=== PATIENT | male | born 1955 | race Hispanic/Latino ===

== ENCOUNTER 2020-04-18 16:23 | Inpatient (IN) | payer MEDICARE ==
--- NOTE | 2020-04-18 16:46 | Emergency Department Report ---
ED Abdominal Pain HPI - General Chief Complaint: Abdominal Pain Stated Complaint: ABD PAIN PUI?: No Time Seen by Provider: 04/18/20 16:43 Source: patient, EMS Mode of arrival: Stretcher Limitations: No Limitations - History of Present Illness Initial Comments: Patient is a 64-year-old male that presents emergency room with complaints of abdominal pain. Patient states a. Patient states the abdominal pain is severe. Patient states it was so bad he had to call EMS to bring him to the hospital. Patient states his worst pain is ever felt. Patient denies nausea vomiting. Patient denies diarrhea. Patient denies chest pain or shortness of breath. Patient denies fever and chills. Patient denies cough. Patient states the abdominal pain is in his upper abdomen. Patient states is in the right upper and epigastric region. Patient states the pain is a 10 out of 10. MD Complaint: abdominal pain -: Sudden Location: RUQ, epigastric Radiation: none Migration to: no migration Severity: severe Severity scale (0 -10): 10 Quality: stabbing Consistency: constant Improves With: rest Worsens With: movement Associated Symptoms: denies: nausea, vomiting, diarrhea, fever, chills, constipation, dysuria, hematemesis, hematochezia, melena, hematuria, syncope - Related Data Allergies Allergy/AdvReac Type Severity Reaction Status Date / Time No Known Allergies Allergy Unverified 04/18/20 19:09 ED Review of Systems ROS: Stated complaint: ABD PAIN Other details as noted in HPI Constitutional: denies: chills, fever Eyes: denies: eye pain, eye discharge, vision change ENT: denies: ear pain, throat pain Respiratory: denies: cough, shortness of breath, wheezing Cardiovascular: denies: chest pain, palpitations Endocrine: no symptoms reported Gastrointestinal: abdominal pain. denies: nausea, diarrhea Genitourinary: denies: urgency, dysuria Musculoskeletal: denies: back pain, joint swelling, arthralgia Skin: denies: rash, lesions Neurological: denies: headache, weakness, paresthesias Psychiatric: denies: anxiety, depression Hematological/Lymphatic: denies: easy bleeding, easy bruising ED Past Medical Hx - Past Medical History Previous Medical History?: Yes Hx Hypertension: Yes - Surgical History Past Surgical History?: No - Family History Family history: no significant - Social History Smoking Status: Never Smoker Substance Use Type: None ED Physical Exam - General Limitations: No Limitations General appearance: alert, in no apparent distress - Head Head exam: Present: atraumatic, normocephalic - Eye Eye exam: Present: normal appearance, PERRL - ENT ENT exam: Present: mucous membranes moist - Neck Neck exam: Present: normal inspection - Respiratory Respiratory exam: Present: normal lung sounds bilaterally. Absent: respiratory distress - Cardiovascular Cardiovascular Exam: Present: regular rate, normal rhythm. Absent: systolic murmur, diastolic murmur, rubs, gallop - GI/Abdominal GI/Abdominal exam: Present: soft, tenderness (Right upper and epigastric tenderness to palpation.), normal bowel sounds - Rectal Rectal exam: Present: deferred - Extremities Exam Extremities exam: Present: normal inspection - Back Exam Back exam: Present: normal inspection - Neurological Exam Neurological exam: Present: alert, oriented X3 - Psychiatric Psychiatric exam: Present: normal affect, normal mood - Skin Skin exam: Present: warm, dry, intact, normal color. Absent: rash ED Course Vital Signs 04/18/20 04/18/20 04/18/20 16:56 17:00 17:30 Temperature 98.4 F Pulse Rate 91 H 90 92 H Respiratory 19 20 18 Rate Blood Pressure 152/103 150/104 Blood Pressure 150/101 [Right] O2 Sat by Pulse 98 97 97 Oximetry 04/18/20 04/18/20 04/18/20 17:46 18:00 18:58 Temperature Pulse Rate 94 H 94 H 102 H Respiratory 18 19 26 H Rate Blood Pressure 152/103 150/106 150/104 Blood Pressure [Right] O2 Sat by Pulse 98 96 99 Oximetry 04/18/20 04/18/20 04/18/20 19:00 19:16 19:30 Temperature Pulse Rate 101 H 95 H 106 H Respiratory 16 18 28 H Rate Blood Pressure 168/110 168/110 164/114 Blood Pressure [Right] O2 Sat by Pulse 96 98 97 Oximetry 04/18/20 04/18/20 04/18/20 20:16 20:30 20:46 Temperature Pulse Rate Respiratory Rate Blood Pressure 150/106 158/110 164/114 Blood Pressure [Right] O2 Sat by Pulse 98 96 99 Oximetry 04/18/20 04/18/20 04/18/20 21:00 21:16 21:30 Temperature Pulse Rate Respiratory 19 Rate Blood Pressure 188/108 188/108 172/111 Blood Pressure [Right] O2 Sat by Pulse 100 96 98 Oximetry 04/18/20 04/18/20 04/18/20 21:46 22:00 22:30 Temperature Pulse Rate Respiratory 18 20 34 H Rate Blood Pressure 200/116 169/110 157/109 Blood Pressure [Right] O2 Sat by Pulse 97 98 100 Oximetry - Reevaluation(s) Reevaluation #1: Patient states the pain was better but is now returning. Patient was given a milligram Dilaudid. Patient given fluids and antibiotics. I discussed all results with patient. I discussed plan of care with patient. Patient agrees with plan of care and admission. Patient to be admitted to the hospitalist service. 04/18/20 19:29 - Consultations Consultation #1: General surgery paged. 04/18/20 19:20 I discussed case with Dr. Cruz general surgery. Dr. Cruz recommends admis st[place] and will see the patient in the morning and n.p.o. after midnight and continue ordered medications. 04/18/20 19:34 Consultation #2: Hospitalist consulted for admission. Hospitalist to admit patient. 04/18/20 19:36 ED Medical Decision Making - Lab Data Result diagrams: 04/18/20 16:56 04/18/20 16:56 - Radiology Data Radiology results: report reviewed CT abdomen pelvis w con INDICATION / CLINICAL INFORMATION: Right-sided abdominal pain TECHNIQUE: Routine CT of the abdomen and pelvis with IV contrast All CT scans at this location are performed using CT dose reduction for ALARA by means of automated exposure control. COMPARISON: None available. FINDINGS: Abdomen and pelvis: The liver, spleen, pancreas and adrenal glands are unremarkable. The gallbladder is fluid distended and the gallbladder wall is mildly thickened. There is slight pericholecystic inflammation.. The common bile duct appears dilated measuring about 10 mm in greatest diameter. The adrenal glands and kidneys are grossly unremarkable. No free air or free fluid is identified. No evidence of bowel obstruction. There is extensive colonic diverticulosis but no evidence of diverticulitis. The prostate contains central calcifications and urinary bladder wall appears borderline thickened. No free pelvic fluid or adenopathy is appreciated. Scattered atherosclerotic calcification of a nondilated abdominal aorta. The lower lungs are clear. Mild thoracolumbar type degenerative changes present. IMPRESSION: Abnormal appearance of the gallbladder suspicious for acute cholecystitis. No gallstones appreciated. Ultrasound would be useful for further evaluation. ULTRASOUND ABDOMEN, LIMITED (RIGHT UPPER QUADRANT) INDICATION: abd pain. gallbladder, acute whitney. COMPARISON: CT abdomen/pelvis, 04/18/2020. FINDINGS: Pancreas: Pancreas is grossly obscured by overlying bowel gas but appeared grossly unremarkable on CT scan from earlier today. Liver: Normal. Gallbladder: Abnormal. The gallbladder is distended. There is mild gallbladder wall thickening as well as moderate amount of sludge within the gallbladder lumen. No definite stones. However small stones may be obscured within the gallbladder sludge. Bile ducts: Abnormal Common Bile Duct measures 7 mm. Free fluid: None. Additional Findings: None. IMPRESSION: 1. Abnormal appearance of the gallbladder. There is abnormal gallbladder distention with associated gallbladder wall thickening and moderate amount of sludge present. The appearance is certainly worrisome for acute cholecystitis. 2. Mild dilatation of the common bile duct is also noted. - Medical Decision Making Patient is a 64-year-old male that presents emergency room with complaints of abdominal pain x2 days. Patient's abdominal pain is in the right upper abdomen and epigastric region. Patient had labs done which were unremarkable except for an elevated WBC. Patient had a CT scan with IV contrast and it shows finding consistent with acute cholecystitis. Patient will be given fluids and antibiotics. General surgery consulted. Patient admitted to the hospitalist service. Patient had an ultrasound done to be followed by the hospitalist service. - Differential Diagnosis Abdominal pain, cholecystitis, cholelithiasis, gastritis, gastroenteritis. Critical Care Time: Yes Critical care time in (mins) excluding proc time.: 35 Critical care attestation.: If time is entered above; I have spent that time in minutes in the direct care of this critically ill patient, excluding procedure time. Critical Care Time: 35 minutes ED Disposition Clinical Impression: Acute cholecystitis Abdominal pain Qualifiers: Abdominal location: upper abdomen, unspecified Qualified Code(s): R10.10 - Upper abdominal pain, unspecified Disposition: 09 OP ADMIT IP TO THIS HOSP Is pt being admited?: Yes Does the pt Need Aspirin: No Condition: Critical Time of Disposition: 19:20
[2020-04-18 17:13] LABS: Basophils % (Auto) 0.3 % (0.0-1.8); Eosinophils % (Auto) 0.2 % (0.0-4.3); Hematocrit 48.2 % (35.5-45.6); Hemoglobin 16.2 gm/dl (11.8-15.2); Lymphocytes % (Auto) 7.5 % (13.4-35.0); Mean Corpuscular HGB Conc 34 % (32-34); Mean Corpuscular Volume 92 fl (84-94); Monocytes # (Auto) 0.7 K/mm3 (0.0-0.8); Monocytes % (Auto) 4.9 % (0.0-7.3); Platelet Count 286 K/mm3 (140-440); Red Blood Count 5.24 M/mm3 (3.65-5.03); Red Cell Distribution Width 13.3 % (13.2-15.2)
[2020-04-18 17:29] LABS: Alanine Aminotransferase 15 units/L (7-56); Albumin 4.3 g/dL (3.9-5); BUN/Creatinine Ratio 65; Blood Urea Nitrogen 13 mg/dL (9-20); Hemolysis Index 18
[2020-04-18] MEDS ORDERED: HYDROmorphone 1 MG/1 ML INJ IV ONE ×2 (17:56→19:29)
--- NOTE | 2020-04-18 19:16 | Cat Scan Report ---
CT abdomen pelvis w con INDICATION / CLINICAL INFORMATION: Right-sided abdominal pain TECHNIQUE: Routine CT of the abdomen and pelvis with IV contrast All CT scans at this location are performed usi ng CT dose reduction for ALARA by means of automated exposure control. COMPARISON: None available. FINDINGS: Abdomen and pelvis: The liver, spleen, pancreas and adrenal glands are unremarkable. The gallbladder is fluid distended a nd the gallbladder wall is mildly thickened. There is slight pericholecystic inflammation.. The commo n bile duct appears dilated measuring about 10 mm in greatest diameter. The adrenal glands and kidneys are grossly unremarkable. No free air or free fluid is identified. No evidence of bowel obstruction. There is extensive colonic diverticulosis but no evidence of diverticulitis. The prostate contains central calcifications and urinary bladder wall appears borderline thickened. N o free pelvic fluid or adenopathy is appreciated. Scattered atherosclerotic calcification of a nondil ated abdominal aorta. The lower lungs are clear. Mild thoracolumbar type degenerative changes present. IMPRESSION: Abnormal appearance of the gallbladder suspicious for acute cholecystitis. No gallstones appreciated. Ultrasound would be useful for further evaluation. Signer Name: Allan Simon MD Signed: 04/18/2020 7:12 PM Workstation Name: [id number]
[2020-04-18] MEDS ORDERED: SODIUM CHLORIDE 0.9% 1000 ML 1,000 ML IV ONE (19:24)
[2020-04-18] MEDS ORDERED: PIPERACIL/TAZOBACTA 4.5/NS 100 4.5 GM/100 ML VIAL IV ONE (19:24)
[2020-04-18] MEDS ORDERED: ONDANSETRON 4 MG/2 ML INJ IV ONE (20:27)
--- NOTE | 2020-04-18 20:36 | Ultrasound Report ---
ULTRASOUND ABDOMEN, LIMITED (RIGHT UPPER QUADRANT) INDICATION: abd pain. gallbladder, acute whitney. COMPARISON: CT abdomen/pelvis, 04/18/2020. FINDINGS: Pancreas: Pancreas is grossly obscured by overlying bowel gas but appeared grossly unremarkable on CT scan from earlier today. Liver: Normal. Gallbladder: Abnormal. The gallbladder is distended. There is mild gallbladder wall thickening as wel l as moderate amount of sludge within the gallbladder lumen. No definite stones. However small stones may be obscured within the gallbladder sludge. Bile ducts: Abnormal Common Bile Duct measures 7 mm. Free fluid: None. Additional Findings: None. IMPRESSION: 1. Abnormal appearance of the gallbladder. There is abnormal gallbladder distention with associated g allbladder wall thickening and moderate amount of sludge present. The appearance is certainly worriso me for acute cholecystitis. 2. Mild dilatation of the common bile duct is also noted. Signer Name: Manju Spears MD Signed: 04/18/2020 8:32 PM Workstation Name: [id number]
[2020-04-18] MEDS ORDERED: ONDANSETRON 4 MG/2 ML INJ IV PRN (21:04)
[2020-04-18] MEDS ORDERED: METOCLOPRAMIDE 10 MG/2 ML INJ IV PRN (21:04)
[2020-04-18] MEDS ORDERED: ACETAMINOPHEN 325 MG TAB PO PRN (21:04)
--- NOTE | 2020-04-18 21:20 | History and Physical Report ---
History of Present Illness Date of examination: 04/18/20 (2100) Date of admission: 04/18/20 20:06 Chief complaint: abd pain for 4 days with cold sweats at night History of present illness: Mr. Gardner is a 64 year old male with HTN, ALS (06/2018), former smoker (2 ppd x20 years) who presents to [facility] ED via ambulance for evaluation of severe abdominal pain for 4 days with night sweats. He rates the pain at 10/10 and describes the pain as a dull pain with no radiation, onset on 04/15 for which he has taken tramadol with minimal relief with no aggravating factors. This pain has interfered with his sleep for the past couple days. He denies chest pain, difficulty breathing, hemoptysis, cough, nausea or vomiting at home. He denies any previous similar episode. He denies any sick contacts, recent travel or exposure to COVID-19. He is wheelchair-bound at home. ED workup included a CT abd/pelvis with contrast, abd ultrasound, surgical consult, IV Zosyn 4.5 mg x1, IV Dilaudid for pain control, fluid resuscitation of [address] abd/pelvis showed a fluid distended gallbladder with mildly thickened wall with slight pericholecystic inflammation and a dilated common bile duct. Abd ultrasound revealed gallbladder distention with associated gallbladder wall thickening and moderate amount of sludge present with mild dilatation of the common bile duct. He is being admitted to the hospital for acute cholecystitis and supportive care. Past History Past Medical History: hypertension, other (ALS (06/2018)). denies: acute MT, COPD Past Surgical History: denies: No surgical history Social history: , full code (ex smoker of 2ppd for 20 years) Family history: diabetes Medications and Allergies Allergies Allergy/AdvReac Type Severity Reaction Status Date / Time No Known Allergies Allergy Unverified 04/18/20 19:09 Active Meds: Active Medications Acetaminophen (Tylenol) 650 mg PO Q4H PRN PRN Reason: Pain MILD(1-3)/Fever >100.5/BELL Famotidine (Pepcid) 20 mg IV BID VESTA Hydromorphone HCl (Dilaudid) 0.5 mg IV Q3H PRN PRN Reason: Pain , Severe (7-10) Dextrose/Sodium Chloride (D5ns) 1,000 mls @ 100 mls/hr IV DIRECT VESTA Piperacillin Sod/Tazobactam Sod (Zosyn/Ns 4.5gm/100ml) 4.5 gm in 100 mls @ 200 mls/hr IV Q8HR VESTA; Protocol Metoclopramide HCl (Reglan) 10 mg IV Q6H PRN PRN Reason: Nausea And Vomiting Ondansetron HCl (Zofran) 4 mg IV Q3H PRN PRN Reason: Nausea And Vomiting Sodium Chloride (Sodium Chloride Flush Syringe 10 Ml) 10 ml IV BID VESTA Sodium Chloride (Sodium Chloride Flush Syringe 10 Ml) 10 ml IV PRN PRN PRN Reason: LINE FLUSH Review of Systems Constitutional: night sweats, no weight loss, no weight gain, no fever, no chills, no sweats, no lethargy Ears, nose, mouth and throat: no ear pain, no ear discharge, no decreased hearing, no nasal discharge, no sore throat, no headache Cardiovascular: high blood pressure (States his PCP instructed him to stop his BP meds for low BP for a couple days), no chest pain, no edema, no lightheadedness, no shortness of breath Respiratory: no cough, no hemoptysis, no shortness of breath Gastrointestinal: abdominal pain (RUQ tenderness on palpation), nausea (at the hospital but none at home), no constipation, no change in bowel habits, no coffee ground emesis Genitourinary Male: no dysuria, no hematuria Rectal: no pain Musculoskeletal: arm numbness/tingling, leg numbness/tingling, atrophy (patient has ALS), no neck stiffness, no neck pain Integumentary: other (patient states he has sores on his bottom per his but reports they are getting better) Neurological: paralysis, numbness (patient has ALS), no headaches, no memory loss, no changes in smell/taste Psychiatric: change in sleep habits (inability to sleep since 04/15), no anxiety, no confusion Endocrine: no cold intolerance, no heat intolerance, no polydipsia, no polyuria, no nocturia Exam - Constitutional Vitals: Temp Pulse Resp BP Pulse Ox 98.4 F 91 H 22 150/101 97 04/18/20 16:56 04/18/20 16:56 04/18/20 16:56 04/18/20 16:56 04/18/20 16:56 General appearance: Present: cachectic - EENT Eyes: Present: PERRL, EOM intact ENT: hearing intact, clear oral mucosa - Neck Neck: Present: supple, normal ROM - Respiratory Respiratory effort: normal Respiratory: bilateral: CTA - Cardiovascular Rhythm: regular Heart Sounds: Present: S1 & S2. Absent: gallop, systolic murmur, diastolic murmur, rub - Extremities Extremities: no ischemia, pulses intact, pulses symmetrical, No edema, normal temperature, normal color Peripheral Pulses: within normal limits - Abdominal General gastrointestinal: Present: soft, tender, normal bowel sounds. Absent: distended, rigid Localized gastrointestinal: tender: RUQ (tenderness to palpation) Male genitourinary: Present: deferred - Rectal Rectal Exam: deferred - Integumentary Integumentary: Present: clear, warm, dry - Musculoskeletal Musculoskeletal: other (paralysis to bilateral arms and legs, bilateral foot drop noted) - Psychiatric Psychiatric: appropriate mood/affect, cooperative - Neurologic Neurologic: other (CN II-XI intact) HEART Score - HEART Score History: Slightly suspicious EKG: Normal Age: > 65 Risk factors: 1-2 risk factors Troponin: < normal limit HEART Score: 3 Results - Labs CBC & Chem 7: 04/18/20 16:56 04/18/20 16:56 Labs: Laboratory Last Values WBC 13.4 K/mm3 (4.5-11.0) H 04/18/20 16:56 RBC 5.24 M/mm3 (3.65-5.03) H 04/18/20 16:56 Hgb 16.2 gm/dl (11.8-15.2) H 04/18/20 16:56 Hct 48.2 % (35.5-45.6) H 04/18/20 16:56 MCV 92 fl (84-94) 04/18/20 16:56 MCH 31 pg (28-32) 04/18/20 16:56 MCHC 34 % (32-34) 04/18/20 16:56 RDW 13.3 % (13.2-15.2) 04/18/20 16:56 Plt Count 286 K/mm3 (140-440) 04/18/20 16:56 Lymph % (Auto) 7.5 % (13.4-35.0) L 04/18/20 16:56 [place] % (Auto) 4.9 % (0.0-7.3) 04/18/20 16:56 Eos % (Auto) 0.2 % (0.0-4.3) 04/18/20 16:56 Baso % (Auto) 0.3 % (0.0-1.8) 04/18/20 16:56 Lymph # 1.0 K/mm3 (1.2-5.4) L 04/18/20 16:56 [place] # 0.7 K/mm3 (0.0-0.8) 04/18/20 16:56 Eos # 0.0 K/mm3 (0.0-0.4) 04/18/20 16:56 Baso # 0.0 K/mm3 (0.0-0.1) 04/18/20 16:56 Seg Neutrophils % 87.1 % (40.0-70.0) H 04/18/20 16:56 Seg Neutrophils # 11.7 K/mm3 (1.8-7.7) H 04/18/20 16:56 Sodium 137 mmol/L (137-145) 04/18/20 16:56 Potassium 3.6 mmol/L (3.6-5.0) 04/18/20 16:56 Chloride 99.6 mmol/L (98-107) 04/18/20 16:56 Carbon Dioxide 19 mmol/L (22-30) L 04/18/20 16:56 Anion Gap 22 mmol/L 04/18/20 16:56 BUN 13 mg/dL (9-20) 04/18/20 16:56 Creatinine 0.2 mg/dL (0.8-1.5) L 04/18/20 16:56 Estimated GFR > 60 ml/min 04/18/20 16:56 BUN/Creatinine Ratio 65 % 04/18/20 16:56 Glucose 109 mg/dL (75-100) H 04/18/20 16:56 Calcium 10.0 mg/dL (8.4-10.2) 04/18/20 16:56 Total Bilirubin 0.60 mg/dL (0.1-1.2) 04/18/20 16:56 AST 18 units/L (5-40) 04/18/20 16:56 ALT 15 units/L (7-56) 04/18/20 16:56 Alkaline Phosphatase 70 units/L (35-129) 04/18/20 16:56 Total Protein 7.2 g/dL (6.3-8.2) 04/18/20 16:56 Albumin 4.3 g/dL (3.9-5) 04/18/20 16:56 Albumin/Globulin Ratio 1.5 % 04/18/20 16:56 - Imaging and Cardiology CT scan - abdomen: report reviewed CT scan - pelvis: report reviewed US - abdomen: report reviewed Imaging and Cardiology: 04/18 ABD U/S: FINDINGS: Pancreas: Pancreas is grossly obscured by overlying bowel gas but appeared grossly unremarkable on CT scan from earlier today. Liver: Normal. Gallbladder: Abnormal. The gallbladder is distended. There is mild gallbladder wall thickening as well as moderate amount of sludge within the gallbladder lumen. No definite stones. However small stones may be obscured within the gallbladder sludge. Bile ducts: Abnormal Common Bile Duct measures 7 mm. Free fluid: None. Additional Findings: None. IMPRESSION: 1. Abnormal appearance of the gallbladder. There is abnormal ga llbladder distention with associated gallbladder wall thickening and moderate amount of sludge present. The appearance is certainly worrisome for acute cholecystitis. 2. Mild dilatation of the common bile duct is also noted. 04/18 CT ABD w/ CONTRAST FINDINGS: Abdomen and pelvis: The liver, spleen, pancreas and adrenal glands are unremarkable. The gallbladder is fluid distended and the gallbladder wall is mildly thickened. There is slight pericholecystic inflammation.. The common bile duct appears dilated measuring about 10 mm in greatest diameter. The adrenal glands and kidneys are grossly unremarkable. No free air or free fluid is identified. No evidence of bowel obstruction. There is extensive colonic diverticulosis but no evidence of diverticulitis. The prostate contains central calcifications and urinary bladder wall appears borderline thickened. No free pelvic fluid or adenopathy is appreciated. Scattered atherosclerotic calcification of a nondilated abdominal aorta. The lower lungs are clear. Mild thoracolumbar type degenerative changes present. IMPRESSION: Abnormal appearance of the gallbladder suspicious for acute cholecystitis. No gallstones appreciated. Ultrasound would be useful for further evaluation. - Diagnostic Impressions Diagnostic Impressions: 04/18 CT abdomen pelvis w con FINDINGS: Abdomen and pelvis: The liver, spleen, pancreas and adrenal glands are unremarkable. The gallbladder is fluid distended and the gallbladder wall is mildly thickened. There is slight pericholecystic inflammation.. The common bile duct appears dilated measuring about 10 mm in greatest diameter. The adrenal glands and kidneys are grossly unremarkable. No free air or free fluid is identified. No evidence of bowel obstruction. There is extensive colonic diverticulosis but no evidence of diverticulitis. The prostate contains central calcifications and urinary bladder wall appears borderline thickened. No free pelvic fluid or adenopathy is appreciated. Scattered atherosclerotic calcification of a nondilated abdominal aorta. The lower lungs are clear. Mild thoracolumbar type degenerative changes present. IMPRESSION: Abnormal appearance of the gallbladder suspicious for acute cholecystitis. No gallstones appreciated. Ultrasound would be useful for further evaluation. 04/18 Abdomen U/S FINDINGS: Pancreas: Pancreas is grossly obscured by overlying bowel gas but appeared grossly unremarkable on CT scan from earlier today. Liver: Normal. Gallbladder: Abnormal. The gallbladder is distended. There is mild gallbladder wall thickening as well as moderate amount of sludge within the gallbladder lumen. No definite stones. However small stones may be obscured within the gallbladder sludge. Bile ducts: Abnormal Common Bile Duct measures 7 mm. Free fluid: None. IMPRESSION: 1. Abnormal appearance of the gallbladder. There is abnormal gallbladder distention with associated gallbladder wall thickening and moderate amount of sludge present. The appearance is certainly worrisome for acute cholecystitis. 2. Mild dilatation of the common bile duct is also noted. Assessment and Plan VTE prophylaxis?: Chemical Plan of care discussed with patient/family: Yes - Patient Problems (1) Acute cholecystitis Current Visit: Yes Status: Acute Plan to address problem: -Dr. Cruz consulted in the ED and abd u/s ordered per her recommendation -Zosyn 4.5 mg every 8 hours IV -NPO except minimal ice chips for comfort -IV prn Dilaudid for pain control - IV hydration with D5NS@ 100ml/hr (2) Leukocytosis Current Visit: Yes Status: Acute Qualifiers: Leukocytosis type: bandemia Qualified Code(s): D72.825 - Bandemia Plan to address problem: -Zosyn 4.5 mg every 8 hours IV -trend CBC -04/18 BC x2 (3) ALS (amyotrophic lateral sclerosis) Onset Date: ~06/2018 Current Visit: Yes Status: Chronic (4) HTN (hypertension) Current Visit: Yes Status: Chronic (5) DVT prophylaxis Current Visit: Yes Status: Acute (6) Full code status Current Visit: Yes Status: Acute
[2020-04-18] MEDS ORDERED: D5W/0.9% NACL 1,000 ML IV SCH (22:00)
[2020-04-18] MEDS ORDERED: HYDROmorphone 1 MG/1 ML INJ ONE (22:34)
[2020-04-18] MEDS: HYDROmorphone 1 MG/1 ML INJ IV PRN (22:34)
[2020-04-18] MEDS: HEPARIN 5,000 UNIT/1 ML VIAL SUB-Q SCH (22:53)
[2020-04-18] MEDS: FAMOTIDINE 20 MG/2 ML INJ IV SCH (23:33)
[2020-04-18] MEDS: D5W/0.9% NACL 1,000 ML IV SCH (23:34)
[2020-04-19] MEDS ORDERED: HYDROmorphone 1 MG/1 ML INJ IV ONE (01:15)
[2020-04-19] MEDS: PIPERACIL/TAZOBACTA 4.5/NS 100 4.5 GM/100 ML VIAL IV SCH ×4 (02:06→22:03)
[2020-04-19 05:00] LABS: Hematocrit 43.6 % (35.5-45.6); Hemoglobin 14.7 gm/dl (11.8-15.2); Mean Corpuscular HGB Conc 34 % (32-34); Mean Corpuscular Volume 92 fl (84-94); Platelet Count 252 K/mm3 (140-440); Red Blood Count 4.76 M/mm3 (3.65-5.03); Red Cell Distribution Width 13.1 % (13.2-15.2)
[2020-04-19] MEDS: HYDROmorphone 1 MG/1 ML INJ IV PRN ×4 (05:09→15:40)
[2020-04-19 05:12] LABS: Alanine Aminotransferase 15 units/L (7-56); Albumin 3.8 g/dL (3.9-5); BUN/Creatinine Ratio 50; Blood Urea Nitrogen 10 mg/dL (9-20); Calcium 9.1 mg/dL (8.4-10.2); Hemolysis Index 32
[2020-04-19 06:13] LABS: Basophils % (Manual) 0 % (0.0-1.8); Eosinophils % (Manual) 0 % (0.0-4.3); Platelet Estimate Consistent w Auto; Total Cells Counted 100
[2020-04-19] MEDS: HEPARIN 5,000 UNIT/1 ML VIAL SUB-Q SCH ×3 (07:00→21:10)
[2020-04-19] MEDS: D5W/0.9% NACL 1,000 ML IV SCH ×2 (09:04→18:08)
[2020-04-19] MEDS: FAMOTIDINE 20 MG/2 ML INJ IV SCH ×2 (09:05→21:10)
--- NOTE | 2020-04-19 11:43 | Consultation ---
History of Present Illness Consult date: 04/19/20 Reason for consult: abdominal pain Requesting physician: ADRIANE PETERSON III Chief complaint: RUQ pain for 4-5 days - History of present illness History of present illness: Mr. Gardner is a 64 year old male with HTN, ALS (06/2018), former smoker (2 ppd x20 years) who presents to [facility] ED via ambulance for evaluation of severe abdominal pain for 4 days with night sweats. He rates the pain at 8/10 and describes the pain as a dull pain with no radiation, in the RUQ. This pain has interfered with his sleep for the past couple days. He denies chest pain, difficulty breathing, hemoptysis, cough, nausea or vomiting at home. He denies any previous similar episode. CT and US show abnormalities with the gallbladder. Past History Past Medical History: hypertension, other (ALS (06/2018)). denies: acute RI, COPD Past Surgical History: denies: No surgical history Social history: , full code (ex smoker of 2ppd for 20 years) Family history: diabetes Medications and Allergies Allergies Allergy/AdvReac Type Severity Reaction Status Date / Time No Known Allergies Allergy Unverified 04/18/20 19:09 Active Meds: Active Medications Acetaminophen (Tylenol) 650 mg PO Q4H PRN PRN Reason: Pain MILD(1-3)/Fever >100.5/BELL Famotidine (Pepcid) 20 mg IV BID [facility] Last Admin: 04/19/20 09:05 Dose: 20 mg Documented by: Heparin Sodium (Porcine) (Heparin) 5,000 unit SUB-Q Q8HR [facility] Last Admin: 04/19/20 07:00 Dose: 5,000 unit Documented by: Hydromorphone HCl (Dilaudid) 0.5 mg IV Q3H PRN PRN Reason: Pain , Severe (7-10) Last Admin: 04/19/20 09:10 Dose: 0.5 mg Documented by: Piperacillin Sod/Tazobactam Sod (Zosyn/Ns 4.5gm/100ml) 4.5 gm in 100 mls @ 200 mls/hr IV Q8HR [facility]; Protocol Last Admin: 04/19/20 05:36 Dose: 200 mls/hr Documented by: Dextrose/Sodium Chloride (D5ns) 1,000 mls @ 125 mls/hr IV DIRECT [facility] Last Admin: 04/19/20 09:04 Dose: 125 mls/hr Documented by: Metoclopramide HCl (Reglan) 10 mg IV Q6H PRN PRN Reason: Nausea And Vomiting Ondansetron HCl (Zofran) 4 mg IV Q3H PRN PRN Reason: Nausea And Vomiting Last Admin: 04/19/20 05:21 Dose: 4 mg Documented by: Sodium Chloride (Sodium Chloride Flush Syringe 10 Ml) 10 ml IV BID [facility] Last Admin: 04/19/20 09:05 Dose: 10 ml Documented by: Sodium Chloride (Sodium Chloride Flush Syringe 10 Ml) 10 ml IV PRN PRN PRN Reason: LINE FLUSH Review of Systems - Constitutional no fever, no chills, no chronic pain - Cardiovascular no chest pain, no shortness of breath - Respiratory no cough - Gastrointestinal abdominal pain, no nausea, no vomiting - Muskuloskeletal no low back pain - Integumentary no rash, no pruritis, no jaundice - Neurological paralysis, weakness Exam Vital Signs Temp Pulse Resp BP Pulse Ox 98.4 F 91 H 22 150/101 97 04/18/20 16:56 04/18/20 16:56 04/18/20 16:56 04/18/20 16:56 04/18/20 16:56 - General physical appearance Positive: no distress, no pain, other (pleasant. minimal movement due to ALS) - Eyes Positive: normal occular movement. Negative: icteric - Respiratory Positive: normal expansion, normal respiratory effort, clear to auscultation - Cardiovascular Rhythm: regular - Abdomen Abdomen: Present: soft, tender (in RUQ only). Absent: distended, guarding, rigid, surgical scars - Integumentary no rash, no growths, no abnormal pigmentation - Neurologic Neurologic: alert and oriented to time, place and person - Psychiatric Psychiatric: appropriate mood/affect, intact judgment & insight, cooperative Results - Labs 04/19/20 04:18 04/19/20 04:18 Abnormal lab results 04/18/20 04/18/20 04/19/20 Range/Units 16:56 16:56 04:18 WBC 13.4 H 18.4 H (4.5-11.0) K/mm3 RBC 5.24 H (3.65-5.03) M/mm3 Hgb 16.2 H (11.8-15.2) gm/dl Hct 48.2 H (35.5-45.6) % RDW 13.1 L (13.2-15.2) % Lymph % (Auto) 7.5 L (13.4-35.0) % Lymph # 1.0 L (1.2-5.4) K/mm3 Seg Neutrophils % 87.1 H (40.0-70.0) % Seg Neuts % (Manual) 93.0 H (40.0-70.0) % Lymphocytes % (Manual) 2.0 L (13.4-35.0) % Seg Neutrophils # 11.7 H (1.8-7.7) K/mm3 Seg Neutrophils # Man 17.1 H (1.8-7.7) K/mm3 Lymphocytes # (Manual) 0.4 L (1.2-5.4) K/mm3 Monocytes # (Manual) 0.9 H (0.0-0.8) K/mm3 Sodium (137-145) mmol/L Potassium (3.6-5.0) mmol/L Carbon Dioxide 19 L (22-30) mmol/L Creatinine 0.2 L (0.8-1.5) mg/dL Glucose 109 H (75-100) mg/dL Albumin (3.9-5) g/dL 04/19/20 Range/Units 04:18 WBC (4.5-11.0) K/mm3 RBC (3.65-5.03) M/mm3 Hgb (11.8-15.2) gm/dl Hct (35.5-45.6) % RDW (13.2-15.2) % Lymph % (Auto) (13.4-35.0) % Lymph # (1.2-5.4) K/mm3 Seg Neutrophils % (40.0-70.0) % Seg Neuts % (Manual) (40.0-70.0) % Lymphocytes % (Manual) (13.4-35.0) % Seg Neutrophils # (1.8-7.7) K/mm3 Seg Neutrophils # Man (1.8-7.7) K/mm3 Lymphocytes # (Manual) (1.2-5.4) K/mm3 Monocytes # (Manual) (0.0-0.8) K/mm3 Sodium 136 L (137-145) mmol/L Potassium 3.3 L (3.6-5.0) mmol/L Carbon Dioxide 21 L (22-30) mmol/L Creatinine 0.2 L (0.8-1.5) mg/dL Glucose 183 H (75-100) mg/dL Albumin 3.8 L (3.9-5) g/dL Diabetes panel 04/18/20 04/19/20 04/19/20 Range/Units 16:56 04:18 04:18 Sodium 137 136 L (137-145) mmol/L Potassium 3.6 3.3 L (3.6-5.0) mmol/L Chloride 99.6 100.5 (98-107) mmol/L Carbon Dioxide 19 L 21 L (22-30) mmol/L BUN 13 10 (9-20) mg/dL Creatinine 0.2 L 0.2 L (0.8-1.5) mg/dL Glucose 109 H 183 H (75-100) mg/dL Hemoglobin A1c 5.1 (4-6) % Calcium 10.0 9.1 (8.4-10.2) mg/dL AST 18 18 (5-40) units/L ALT 15 15 (7-56) units/L Alkaline Phosphatase 70 63 (35-129) units/L Total Protein 7.2 6.9 (6.3-8.2) g/dL Albumin 4.3 3.8 L (3.9-5) g/dL Calcium panel 04/18/20 04/19/20 Range/Units 16:56 04:18 Calcium 10.0 9.1 (8.4-10.2) mg/dL Albumin 4.3 3.8 L (3.9-5) g/dL Pituitary panel 04/18/20 04/19/20 Range/Units 16:56 04:18 Sodium 137 136 L (137-145) mmol/L Potassium 3.6 3.3 L (3.6-5.0) mmol/L Chloride 99.6 100.5 (98-107) mmol/L Carbon Dioxide 19 L 21 L (22-30) mmol/L BUN 13 10 (9-20) mg/dL Creatinine 0.2 L 0.2 L (0.8-1.5) mg/dL Glucose 109 H 183 H (75-100) mg/dL Calcium 10.0 9.1 (8.4-10.2) mg/dL Adrenal panel 04/18/20 04/19/20 Range/Units 16:56 04:18 Sodium 137 136 L (137-145) mmol/L Potassium 3.6 3.3 L (3.6-5.0) mmol/L Chloride 99.6 100.5 (98-107) mmol/L Carbon Dioxide 19 L 21 L (22-30) mmol/L BUN 13 10 (9-20) mg/dL Creatinine 0.2 L 0.2 L (0.8-1.5) mg/dL Glucose 109 H 183 H (75-100) mg/dL Calcium 10.0 9.1 (8.4-10.2) mg/dL Total Bilirubin 0.60 0.50 (0.1-1.2) mg/dL AST 18 18 (5-40) units/L ALT 15 15 (7-56) units/L Alkaline Phosphatase 70 63 (35-129) units/L Total Protein 7.2 6.9 (6.3-8.2) g/dL Albumin 4.3 3.8 L (3.9-5) g/dL - Imaging CT scan - abdomen: report reviewed, image reviewed CT scan - pelvis: report reviewed, image reviewed US - abdomen: report reviewed, image reviewed Assessment and Plan - Patient Problems (1) Acute cholecystitis Current Visit: Yes Status: Acute Plan to address problem: Pt stable. Pt in need of lap whitney. Procedure, risks, benefits discussed. All questions answered. Obtained verbal consent from patient (can not sign) and telephone consent with . Will proceed to OR today. Time=30min
[2020-04-19] MEDS ORDERED: LIDOCAINE 1%/EPINEPHRINE 1:100,000 VIAL (20 ML) INFILTRATI ONE ×2 (12:51→13:55)
[2020-04-19] MEDS ORDERED: BUPIVACAINE/PF (0.5%) 5 MG/1 ML 30 ML VIAL INFILTRATI ONE ×2 (12:51→13:55)
--- NOTE | 2020-04-19 13:00 | Anesthesia Consultation ---
<VIPUL BHAKTA - Last Filed: 04/19/20 12:55> Anesthesia Consult and Med Hx Date of service: 04/19/20 - Airway Anesthetic Teeth Evaluation: Poor ROM Head & Neck: Adequate Mental/Hyoid Distance: Inadequate Mallampati Class: Class II Intubation Access Assessment: Probably Good - Pulmonary Exam CTA: Yes - Pre-Operative Health Status ASA Pre-Surgery Classification: ASA3 Proposed Anesthetic Plan: General - Pulmonary Hx Smoking: No Hx Asthma: No COPD: No Hx Pneumonia: No - Cardiovascular System Hx Hypertension: Yes - Central Nervous System Hx Neuromuscular Disorder: Yes (Love-Bhupinder Syndrome) Hx Seizures: No CVA: No Hx Psychiatric Problems: Yes (Anxiety and depression) - Gastrointestinal Hx Gastroesophageal Reflux Disease: No - Endocrine Hx Renal Disease: No Hx Liver Disease: No Hx Insulin Dependent Diabetes: No - Hematic Hx Anemia: No - Other Systems Hx Alcohol Use: No Hx Substance Use: No - Additional Comments Anesthesia Medical History Comments: Patient denies previous anesthesia related complications <ANGIE WOLFF - Last Filed: 04/21/20 13:05> Anesthesia Consult and Med Hx - Additional Comments Anesthesia Medical History Comments: Document co-signed for chart completion purposes only.
--- NOTE | 2020-04-19 13:03 | Anesthesia Day of Surgery ---
<VIPUL BHAKTA - Last Filed: 04/19/20 13:03> Anesthesia Day of Surgery - Day of Surgery Patient Examined: Yes Patient H&P Reviewed: Yes Patient is NPO: Yes <ANGIE WOLFF - Last Filed: 04/21/20 13:04> Anesthesia Day of Surgery - Day of Surgery Patient Examined: No (Document co-signed for chart completion purposes only.)
[2020-04-19] MEDS ORDERED: dexAMETHasone 20 MG/5 ML VIAL ONE (13:11)
[2020-04-19] MEDS ORDERED: HYDROmorphone 1 MG/1 ML INJ ONE (13:11)
[2020-04-19] MEDS ORDERED: ROCURONIUM 50 MG/5 ML INJ IV ONE (13:11)
[2020-04-19] MEDS ORDERED: ONDANSETRON 4 MG/2 ML INJ ONE (13:11)
[2020-04-19] MEDS ORDERED: propofoL 200 MG/20 ML VIAL IV ONE (13:11)
[2020-04-19] MEDS ORDERED: LIDOCAINE MPF (2%) 20 MG/1 ML VIAL 5 ML ONE (13:11)
[2020-04-19] MEDS ORDERED: SODIUM CHLORIDE 0.9% IRRIG SOLN 2000 ML IR ONE (13:56)
[2020-04-19] MEDS ORDERED: SODIUM CHLORIDE 0.9% IRR 1,500 ML BOTTLE IR ONE (13:56)
[2020-04-19] MEDS ORDERED: PHENYLEPHRINE/NS 1,000 MCG/10 ML SYRINGE (OR USE) IV ONE (14:57)
[2020-04-19] MEDS ORDERED: GLYCOPYRROLATE 0.4 MG/2 ML INJ ONE (15:00)
[2020-04-19] MEDS ORDERED: NEOSTIGMINE 10MG/10 ML INJ MDV ONE (15:00)
[2020-04-19] MEDS ORDERED: HYDROcodone/ACETAMINOPHEN 5-325 MG TAB PO PRN (15:16)
--- NOTE | 2020-04-19 15:17 | Post Operative Note ---
Date of procedure: 04/19/20 (dictation:[id number]) Pre-op diagnosis: acute cholecystitis Post-op diagnosis: same Findings: marked distended and inflammed GB. Dense adhesions to surrounding tissue and liver bed. Procedure: lap whitney IVF 900cc EBL ~100cc Anesthesia: GETA Surgeon: DANTE LARSEN Estimated blood loss: 50-100ml Pathology: list (gallbladder; fluid culture) Specimen disposition: to lab Condition: stable Disposition: PACU
[2020-04-19] MEDS ORDERED: ONDANSETRON 4 MG/2 ML INJ IV PRN (15:26)
--- NOTE | 2020-04-19 16:06 | Progress Note ---
<VIPUL BHAKTA - Last Filed: 04/19/20 16:02> Subjective Date of service: 04/19/20 Principal diagnosis: Acute Cholecystitis Objective - Constitutional Vitals: Vital Signs - 12hr 04/19/20 04/19/20 04/19/20 05:29 07:13 11:43 Temperature 98.0 F 99.2 F 98.6 F Pulse Rate 93 H 96 H 88 Respiratory 18 18 18 Rate Blood Pressure 147/99 161/107 168/104 O2 Sat by Pulse 94 93 97 Oximetry 04/19/20 04/19/20 04/19/20 15:18 15:25 15:30 Temperature 97.2 F L Pulse Rate 93 H 96 H 101 H Respiratory 12 12 12 Rate Blood Pressure 151/87 144/88 159/92 O2 Sat by Pulse 98 98 97 Oximetry 04/19/20 04/19/20 15:35 15:45 Temperature Pulse Rate 96 H Respiratory 12 Rate Blood Pressure 149/83 133/85 O2 Sat by Pulse 98 Oximetry - Labs CBC & Chem 7: 04/19/20 04:18 04/19/20 04:18 Labs: Abnormal lab results 04/18/20 04/18/20 04/19/20 Range/Units 16:56 16:56 04:18 WBC 13.4 H 18.4 H (4.5-11.0) K/mm3 RBC 5.24 H (3.65-5.03) M/mm3 Hgb 16.2 H (11.8-15.2) gm/dl Hct 48.2 H (35.5-45.6) % RDW 13.1 L (13.2-15.2) % Lymph % (Auto) 7.5 L (13.4-35.0) % Lymph # 1.0 L (1.2-5.4) K/mm3 Seg Neutrophils % 87.1 H (40.0-70.0) % Seg Neuts % (Manual) 93.0 H (40.0-70.0) % Lymphocytes % (Manual) 2.0 L (13.4-35.0) % Seg Neutrophils # 11.7 H (1.8-7.7) K/mm3 Seg Neutrophils # Man 17.1 H (1.8-7.7) K/mm3 Lymphocytes # (Manual) 0.4 L (1.2-5.4) K/mm3 Monocytes # (Manual) 0.9 H (0.0-0.8) K/mm3 Sodium (137-145) mmol/L Potassium (3.6-5.0) mmol/L Carbon Dioxide 19 L (22-30) mmol/L Creatinine 0.2 L (0.8-1.5) mg/dL Glucose 109 H (75-100) mg/dL Albumin (3.9-5) g/dL 04/19/20 Range/Units 04:18 WBC (4.5-11.0) K/mm3 RBC (3.65-5.03) M/mm3 Hgb (11.8-15.2) gm/dl Hct (35.5-45.6) % RDW (13.2-15.2) % Lymph % (Auto) (13.4-35.0) % Lymph # (1.2-5.4) K/mm3 Seg Neutrophils % (40.0-70.0) % Seg Neuts % (Manual) (40.0-70.0) % Lymphocytes % (Manual) (13.4-35.0) % Seg Neutrophils # (1.8-7.7) K/mm3 Seg Neutrophils # Man (1.8-7.7) K/mm3 Lymphocytes # (Manual) (1.2-5.4) K/mm3 Monocytes # (Manual) (0.0-0.8) K/mm3 Sodium 136 L (137-145) mmol/L Potassium 3.3 L (3.6-5.0) mmol/L Carbon Dioxide 21 L (22-30) mmol/L Creatinine 0.2 L (0.8-1.5) mg/dL Glucose 183 H (75-100) mg/dL Albumin 3.8 L (3.9-5) g/dL <ANGIE WOLFF - Last Filed: 04/21/20 13:04> Subjective Interval history: Document co-signed for chart completion purposes only. Objective - Labs CBC & Chem 7: 04/20/20 04:17 04/19/20 04:18
[2020-04-19] MEDS ORDERED: SODIUM CHLORIDE 0.9% 1000 ML 1,000 ML ONE (16:08)
--- NOTE | 2020-04-19 16:10 | Post Anesthesia Evaluation ---
<VIPUL BHAKTA - Last Filed: 04/19/20 16:06> - Post Anesthesia Evaluation Patient Participated: Yes Airway Patent: Yes Stable Respiratory Function: Yes Nausea/Vomiting: No Temp > 96.8F: No Pain Manageable: Yes Adequeate Hydration: Yes Anesthesia Complications: No Block Receding Appropriately: Not Applicable Patient on Ventilator: No Other Comments: Patient alert and oriented; no acute distress noted and vital signs stable. Transfered back to floor- 318. <ANGIE WOLFF. - Last Filed: 04/21/20 13:03> - Post Anesthesia Evaluation Other Comments: Document co-signed for chart completion purposes only.
--- NOTE | 2020-04-19 17:31 | Operative Report ---
PREOPERATIVE DIAGNOSIS: Acute cholecystitis. POSTOPERATIVE DIAGNOSIS: Acute cholecystitis. PROCEDURE: Laparoscopic cholecystectomy. ATTENDING PHYSICIAN: Catalina Tee MD ANESTHESIA: General. ESTIMATED BLOOD LOSS: Approximately 100 mL. FLUIDS: 900 mL. FINDINGS: Markedly distended and inflamed gallbladder. Approximately 100 mL of foul-smelling bile was aspirated from the gallbladder. SPECIMENS: Gallbladder. DRAINS: None. DISPOSITION: Stable, transferred to Recovery Room. INDICATIONS: The patient is a 64-year-old male who presented to the Emergency Room for a 3-4 day history male with of severe upper abdominal pain with a 3 to 4 day history of severe upper abdominal pain, evaluation with ultrasound and CT scan suggested acute cholecystitis. The patient is assessed to be need for surgery. Procedure, risks, benefits were explained to the patient. Risks included but were not limited to infection, bleeding, pain, injury to surrounding structures, possible need for open surgery, possible need for further procedures in the future. Of note, the patient has a history of ALS. He is unable to sign the consent, but he gave verbal consent. We spoke to the on the phone at the same time and got telephone consent. Once consents were obtained, arrangements were made for the operating room. OPERATIVE NOTE: The patient was brought to the operating room and placed on the table in supine position. After adequate general anesthesia was established, the patient was prepped and draped in usual sterile fashion. Antibiotics had already been given. SCDs were on. Time-out was called. I began by placing a Veress needle in left upper quadrant. I was able to insufflate in the first attempt. Using the Optiview technique, I placed the 5 mm port in the right side of the abdomen after it was insufflated. I was able to enter the peritoneal cavity safely. There was no injury to the underlying structures. The area underneath the Veress needle was without any signs of injury. Veress needle was removed. We then made preparations to place an 11 mm port at the umbilicus. Curvilinear incision was made. Suture was placed first that will be used for closure at the end and then port was inserted under direct vision, two more 5 mm ports were placed along the subcostal margin. We began by gently the adhesions around the gallbladder to the omentum and adjacent bowel. This was done bluntly and very gently, I then proceeded to aspirate at least 100 mL of bile with the aspiration needle. It was foul smelling, but did not appear purulent. Once most of the gallbladder was decompressed we then began top down approach of the dissection using the Harmonic scalpel. I was able to get down about 1[address] and then transitioned to our typical elevated gallbladder position and dissected out the triangle of Calot. We gently had to separate the bowel and omental adhesions. There were significant adhesions in that area that required extra time. It was a very difficult case due to the large size and thickness of the gallbladder, which made it difficult to grab and then the adhesions to the small bowel and omentum that were in that area; however, I was able to dissect out a very large critical view. We clearly saw the cystic duct. There was no question and I believe I saw where it was entering the common duct as well. The cystic duct was short. There was a band in front of the cystic duct that we dissected out. I placed clips on either side just in case this was the cystic artery and in retrospect when I looked at the gallbladder on the back table where we had placed a clip. There did appear to be a very tiny artery, so the cystic artery was in aberrant location. Once we dissected out the cystic duct, three clips were placed distally, one proximally and cystic duct was divided sharply. I took care in putting the bottom clip high enough, so that it would not compromise the lumen of the common duct. We then removed the gallbladder from the bed using combination of blunt dissection and Harmonic scalpel. We placed the specimen in the EndoCatch bag. We thoroughly washed out the area. Please note that when we entered the abdominal cavity, there was already abnormal looking fluid in the right upper quadrant that had a brownish color to it. It appeared as though we had very good hemostasis. Clips were completely in place. I did not see any leaking of bile or blood. As a precaution, I laid Surgicel in the bed in case there was any delayed bleeding. Everything looked very good. We then desufflated the abdomen using the COVID virus protocol. Once the abdomen was completely desufflated, we then removed all the ports. We removed the specimen from the umbilical site. I had to make the opening larger to get this large gallbladder out, but we were successful. I have required an additional 2-0 PDS suture to close the fascia and I made sure there was nothing else underneath that we may have accidentally grabbed, it appears as though we had good bites without incorporating any of the underlying tissue such as omentum or intestine. Once this was closed, additional local was injected into all the incision sites. A 4-0 Monocryl subcuticular stitches were then placed. I thoroughly washed out the umbilicus before closing the skin as a precaution because of the appearance of the gallbladder and the surrounding fluid. I did not apply Dermabond to the umbilicus. I only placed a couple of interrupted stitches so that in case there was any fluid that accumulated. It could drain out, minimize risk of infection. This area was covered with gauze and Tegaderm. The other three 5 mm incisions, once they were closed, clean and dry, we placed Dermabond. The patient tolerated the procedure well. There were no complications. All counts were correct at the end of the case. I spoke with the by phone at length. She was very appreciative. JOB# [id number] PAUL/RILEY
--- NOTE | 2020-04-19 18:10 | Progress Note ---
Assessment and Plan - Patient Problems (1) Acute cholecystitis Current Visit: Yes Status: Acute Plan to address problem: Patient went in for laparoscopic cholecystectomy Patient had a distended gallbladder Postop patient doing well Discharge planning per surgery' Continue IV antibiotics (2) SIRS (systemic inflammatory response syndrome) Current Visit: Yes Status: Acute Plan to address problem: Patient has leukocytosis, tachycardia and was tachypneic at the time of admission Clinical and laboratory findings consistent with Sirs. No sepsis. (3) ALS (amyotrophic lateral sclerosis) Onset Date: ~06/2018 Current Visit: Yes Status: Chronic Plan to address problem: Supportive care (4) HTN (hypertension) Current Visit: Yes Status: Chronic Qualifiers: Hypertension type: essential hypertension Qualified Code(s): I10 - Essential (primary) hypertension Plan to address problem: Continue antihypertensives Hydralazine PRN Catapres patch as necessary (5) Hypokalemia Current Visit: Yes Status: Acute Plan to address problem: Supplemented (6) DVT prophylaxis Current Visit: Yes Status: Acute Plan to address problem: Heparin 5000 every 12 and GI prophylaxis Heparin (7) Discharge planning issues Current Visit: Yes Status: Acute Plan to address problem: Probable discharge tomorrow if surgery agrees Subjective Date of service: 04/19/20 Principal diagnosis: Acute Cholecystitis Interval history: Mr. Gardner is a 64 year old male with HTN, ALS (06/2018), former smoker (2 ppd x20 years) who presents to [facility] ED via ambulance for evaluation of severe abdominal pain for 4 days with night sweats. He rates the pain at 10/10 and describes the pain as a dull pain with no radiation, onset on 04/15 for which he has taken tramadol with minimal relief with no aggravating factors. This pain has interfered with his sleep for the past couple days. He denies chest pain, difficulty breathing, hemoptysis, cough, nausea or vomiting at home. He denies any previous similar episode. Patient admitted for acute cholecystitis Patient went in for lap Cholecystectomy today Postop patient doing well. + Objective - Constitutional Vitals: Vital Signs - 12hr 04/19/20 04/19/20 04/19/20 07:13 11:43 15:18 Temperature 99.2 F 98.6 F 97.2 F L Pulse Rate 96 H 88 93 H Respiratory 18 18 12 Rate Blood Pressure 161/107 168/104 151/87 O2 Sat by Pulse 93 97 98 Oximetry 04/19/20 04/19/20 04/19/20 15:25 15:30 15:35 Temperature Pulse Rate 96 H 101 H 96 H Respiratory 12 12 12 Rate Blood Pressure 144/88 159/92 149/83 O2 Sat by Pulse 98 97 98 Oximetry 04/19/20 04/19/20 04/19/20 15:45 16:00 16:08 Temperature 97.6 F Pulse Rate 90 Respiratory 12 Rate Blood Pressure 133/85 135/87 O2 Sat by Pulse 98 Oximetry 04/19/20 04/19/20 04/19/20 16:15 16:26 16:35 Temperature 98.8 F Pulse Rate 90 89 94 H Respiratory 12 12 18 Rate Blood Pressure 140/89 140/89 153/98 O2 Sat by Pulse 99 99 99 Oximetry General appearance: Present: no acute distress, well-nourished - EENT Eyes: PERRL, EOM intact ENT: hearing intact, clear oral mucosa Ears: bilateral: normal - Neck Neck: supple, normal ROM - Respiratory Respiratory effort: normal Respiratory: bilateral: CTA - Breasts Breasts: normal - Cardiovascular Heart rate: 76 Rhythm: regular Heart Sounds: Present: S1 & S2. Absent: gallop, rub Extremities: no ischemia, pulses intact, No edema, normal color, Full ROM - Gastrointestinal General gastrointestinal: Present: soft, non-tender, non-distended, normal bowel sounds, other (Postop tenderness present) - Genitourinary Male genitourinary: normal - Integumentary Integumentary: clear, warm, dry - Musculoskeletal Musculoskeletal: 1, strength equal bilaterally - Neurologic Neurologic: moves all extremities - Psychiatric Psychiatric: memory intact, appropriate mood/affect, intact judgment & insight - Labs CBC & Chem 7: 04/19/20 04:18 04/19/20 04:18 Labs: Abnormal lab results 04/19/20 04/19/20 Range/Units 04:18 04:18 WBC 18.4 H (4.5-11.0) K/mm3 RDW 13.1 L (13.2-15.2) % Seg Neuts % (Manual) 93.0 H (40.0-70.0) % Lymphocytes % (Manual) 2.0 L (13.4-35.0) % Seg Neutrophils # Man 17.1 H (1.8-7.7) K/mm3 Lymphocytes # (Manual) 0.4 L (1.2-5.4) K/mm3 Monocytes # (Manual) 0.9 H (0.0-0.8) K/mm3 Sodium 136 L (137-145) mmol/L Potassium 3.3 L (3.6-5.0) mmol/L Carbon Dioxide 21 L (22-30) mmol/L Creatinine 0.2 L (0.8-1.5) mg/dL Glucose 183 H (75-100) mg/dL Albumin 3.8 L (3.9-5) g/dL HEART Score - HEART Score EKG: Normal Age: > 65 Risk factors: 1-2 risk factors Troponin: < normal limit
[2020-04-19] MEDS ORDERED: hydrALAZINE 20 MG/1 ML INJ IV PRN (18:14)
[2020-04-19] MEDS ORDERED: cloNIDine TTS 0.2 MG/24 HR PATCH TD SCH (19:00)
[2020-04-19] MEDS: POTASSIUM CHLORIDE 10 MEQ 10 MEQ/100 ML BAG IV SCH ×2 (20:44→22:00)
[2020-04-19] MEDS: GABAPENTIN 300 MG CAP PO SCH (21:09)
[2020-04-19] MEDS: CELECOXIB 200 MG CAP PO SCH (21:09)
[2020-04-19] MEDS ORDERED: GABAPENTIN 300 MG CAP PO SCH (22:00)
[2020-04-19] MEDS ORDERED: ACETAMINOPHEN 500 MG TAB PO SCH (22:00)
[2020-04-20] MEDS: D5W/0.9% NACL 1,000 ML IV SCH (04:52)
[2020-04-20 05:13] LABS: Hematocrit 40.6 % (35.5-45.6); Hemoglobin 13.9 gm/dl (11.8-15.2); Mean Corpuscular HGB Conc 34 % (32-34); Mean Corpuscular Volume 94 fl (84-94); Platelet Count 179 K/mm3 (140-440); Red Blood Count 4.31 M/mm3 (3.65-5.03); Red Cell Distribution Width 13.4 % (13.2-15.2)
[2020-04-20] MEDS: HEPARIN 5,000 UNIT/1 ML VIAL SUB-Q SCH (05:16)
[2020-04-20] MEDS: PIPERACIL/TAZOBACTA 4.5/NS 100 4.5 GM/100 ML VIAL IV SCH (05:16)
[2020-04-20 06:45] LABS: Basophils % (Manual) 0 % (0.0-1.8); Eosinophils % (Manual) 0 % (0.0-4.3); Total Cells Counted 100
[2020-04-20 06:46] LABS: Anisocytosis 1+; Platelet Estimate Consistent w Auto
[2020-04-20] MEDS: FAMOTIDINE 20 MG/2 ML INJ IV SCH ×2 (08:58→10:10)
[2020-04-20] MEDS: GABAPENTIN 300 MG CAP PO SCH ×2 (08:58→10:10)
[2020-04-20] MEDS: CELECOXIB 200 MG CAP PO SCH ×2 (08:58→10:05)
[2020-04-20 11:19] VITALS: BP 129/77
--- NOTE | 2020-04-20 13:24 | Discharge Summary ---
Providers - Providers Date of Admission: 04/18/20 20:06 Date of discharge: 04/20/20 Attending physician: PRIMITIVO SANCHES 04/18/20 19:34 Consult to Physician [CONS] Routine Comment: Dr. Pimentel spoke with Dr. Vergara @ 1933 Consulting Provider: JASVIR VERGARA Physician Instructions: Reason For Exam: [place] Primary care physician: DOMENICO RENDON Hospitalization Reason for admission: acute cholecystitis Condition: Stable Pertinent studies: US and CT of abdomen Procedures: lap [place] Hospital course: Patient was admitted from the ER due to acute infection and pain. He underwent IV antibiotic therapy and resuscitation initially. He was subsequently taken to the operating room for a laparoscopic cholecystectomy. There were no complications. The following day, he was doing well and assessed to be ready for discharge. His intraoperative cultures came back showing heavy gram- negative growth in the gallbladder. He was sent home on antibiotics. Disposition: - TO HOME OR SELFCARE - Discharge Diagnoses (1) Acute cholecystitis Status: Acute Core Measure Documentation - Palliative Care Palliative Care/ Comfort Measures: Not Applicable - Core Measures Any of the following diagnoses?: none - VTE Discharge Requirements Deep Vein Thrombosis/Pulmonary Embolism Present on Admission: No Exam - Constitutional Vitals: Temp Pulse Resp BP Pulse Ox 99.4 F 111 H 20 129/77 97 04/20/20 11:07 04/20/20 11:07 04/20/20 11:07 04/20/20 11:07 04/20/20 11:07 General appearance: Present: no acute distress, other (looks much better today) - EENT Eyes: Present: PERRL - Neck Neck: Present: supple - Respiratory Respiratory effort: normal - Cardiovascular Rhythm: regular - Abdominal General gastrointestinal: Present: soft, non-tender, non-distended, other (incisions are C/D/I) - Integumentary Integumentary: Present: clear, warm, dry. Absent: erythema, jaundice - Psychiatric Psychiatric: appropriate mood/affect, intact judgment & insight, cooperative Plan Activity: advance as tolerated Diet: regular Wound: open to air, keep clean and dry, change dressing (for belly button area - change dressing daily until drainage stops), other (sponge bath starting tomorrow. Pat dry wounds when done. ) Follow up with: DOMENICO RENDON DO [Primary Care Provider] - 7 Days DANTE LARSEN MD [Staff Physician] - 14 Days Prescriptions: Acetaminophen [Acetaminophen TAB] 500 mg PO Q6H PRN #30 tablet PRN Reason: Pain, Moderate (4-6) Amoxicillin/Potassium Clav [Augmentin 875-125 Tablet] 1 each PO BID #14 tablet HYDROcodone/APAP 5-325 [[place] 5-325 mg TAB] 2 each PO Q6H PRN #30 tablet PRN Reason: Pain , Severe (7-10)
== END 2020-04-20 14:55 | disposition home health service (06) | DRG 418 ==
LOC: ED 16:23 → 3B-SURG 20:06
PROVIDERS: ADMIT Internal Medicine; ATTEND Internal Medicine
PROC: 0FT44ZZ Resection of Gallbladder, Percutaneous Endoscopic Approach (ICD-10-PCS; principal; 2020-04-19)
PROC: 0DNU4ZZ Release Omentum, Percutaneous Endoscopic Approach (ICD-10-PCS; 2020-04-19)
PROC: 0DN84ZZ Release Small Intestine, Percutaneous Endoscopic Approach (ICD-10-PCS; 2020-04-19)
DX: K81.0 Acute cholecystitis (principal); R65.10 Systemic inflammatory response syndrome (SIRS) of non-infectious origin without acute organ dysfunction; G12.21 Amyotrophic lateral sclerosis; I10 Essential (primary) hypertension; F41.8 Other specified anxiety disorders; E87.6 Hypokalemia; K66.0 Peritoneal adhesions (postprocedural) (postinfection); Z87.891 Personal history of nicotine dependence; Z83.3 Family history of diabetes mellitus
CPT/HCPCS: 36415; 74177; 76705; 80053; 83036; 85007; 85025; 87076; 87116; 87186; 88304; 96365; 96375; 96376; G0378; A4217; J1100; J1170; J1644; J2370; J2405; J2543; J2704; J2710; J3480; J7030; J7042; Q9967